=== PATIENT | female | born 1990 | race Native Hawaiian/Other Pacific Islander ===

== ENCOUNTER 2017-05-18 11:47 | Emergency (ER) | payer OTHER ==
[~2017-05-18] VITALS: Ht 152.4 cm; Wt 86.2 kg
== END 2017-05-18 12:14 | disposition home or self-care (01) ==
LOC: ED 11:47
DX: R69 Illness, unspecified (principal)
CPT/HCPCS: 99281

== ENCOUNTER 2023-07-09 12:30 | Outpatient (CLI) | payer OTHER ==
[2023-07-09 12:55] LABS: PLATELET COUNT 295 K/uL (152-353)
[2023-07-09 13:06] LABS: POTASSIUM 3.2 mmol/L (3.6-5.2)
== END 2023-07-09 19:16 | disposition home or self-care (01) ==
LOC: LABW 12:30
PROVIDERS: ATTEND Nurse Practitioner Family
DX: R52 Pain, unspecified (principal)
CPT/HCPCS: 36415; 80053; 82150; 82550; 82553; 83690; 84484; 85027; 93005